=== PATIENT | male | born 1995 | race Two or more races ===

== ENCOUNTER 2021-03-26 06:29 | Emergency (ER) | payer OTHER ==
[~2021-03-26] VITALS: Ht 162.6 cm; Wt 69.8 kg
--- NOTE | 2021-03-26 06:42 | NUR ---
PT CAME INTO THIS AM FOR TESTICULAR PAIN SINCE LAST WEDNESDAY. PT STATES PAIN IS INTERMITTENT AT THIS TIME, COMES AND GOES WITHOUT AND SEEMING REASON. DENIES CHANGES IN GI/ AT THIS TIME. WCTM. STATES HE TOOK A PILL FROM HIS DAD THAT IS FOR HIS BACK PAIN, UNKNOWN MEDICATION BEDSIDE REPORT TO [facility]. PT CARE TRANSFERRED AT THIS TIME.
[2021-03-26 07:32] LABS: MICROSCOPIC INDICATED
--- NOTE | 2021-03-26 08:30 | NUR ---
US finished with bedside exam.
[2021-03-26 09:32] VITALS: BP 118/62
== END 2021-03-26 09:39 | disposition home or self-care (01) ==
LOC: ED 08:39
DX: N50.811 Right testicular pain (principal)
CPT/HCPCS: 76870; 81001; 87491; 87591; 99284